=== PATIENT | male | born 1955 | race Two or more races ===

== ENCOUNTER 2021-06-28 14:25 | Inpatient (IN) | payer MEDICARE, OTHER ==
[~2021-06-28] VITALS: Ht 165.1 cm; Wt 71.0 kg
[2021-06-28] MEDS ORDERED: GLUCOSE ORAL GEL 15 GM TUBE PO ONE (14:30)
[2021-06-28] MEDS ORDERED: GLUCOSE ORAL GEL 15 GM TUBE ONE (14:30)
--- NOTE | 2021-06-28 14:30 | NUR ---
Patient brought in by RA Cordero for a low blood sugar, patient blood sugar noted at 11, patient is alert but unable to determine how oriented patient is, patient is a hospice patient, patient is jaundice, right upper arm IV started walker PATEL
[2021-06-28] MEDS ORDERED: DEXTROSE 50% 50 ML DISP.SYRIN ONE (14:31)
[2021-06-28] MEDS ORDERED: GLUCAGON,HUMAN RECOMBINANT 1 MG VIAL ONE (14:31)
[2021-06-28 14:47] LABS: HEMATOCRIT 36.5 % (36.7-47.1); MEAN CORPUSCULAR VOLUME 78.5 fL (73.0-96.2); PLATELET COUNT (AUTO) 231 K/uL (152-348)
[2021-06-28] MEDS ORDERED: IV 10% DEXTROSE 1,000 ML IV STA (14:51)
[2021-06-28] MEDS ORDERED: DEXTROSE 50% 50 ML DISP.SYRIN IV ONE (15:00)
[2021-06-28 15:04] LABS: BILIRUBIN,DIRECT 19.2 mg/dL (0.0-0.2); BILIRUBIN,TOTAL 22.9 mg/dL (0.2-1.0); CREATININE 3.4 mg/dL (0.6-1.3); POTASSIUM 5.1 mmol/L (3.5-5.1); TOTAL PROTEIN, SERUM 5.3 g/dL (6.4-8.2)
[2021-06-28 15:23] LABS: BAND % (MANUAL) 3 % (0-10); EOSINOPHILS % (MANUAL) 1 % (0-8); LYMPHOCYTES % (MANUAL) 15 % (20-40); MONOCYTES % (MANUAL) 9 % (2-10); NEUTROPHILS % (MANUAL) 72 % (42-75)
[2021-06-28] MEDS ORDERED: IV NORMAL SALINE 1000 ML BAG IV ONE ×2 (15:30→15:45)
[2021-06-28] MEDS ORDERED: CEFTRIAXONE 1 G in IV DEXTROSE 5% 50 ML IV ONE (15:30)
[2021-06-28] MEDS ORDERED: CEFTRIAXONE /D5W 50ML IVPB **ER PYXIS IV ONE (15:40)
[2021-06-28] MEDS ORDERED: VANCOMYCIN 1G/D5W 200 ML PIGGYBACK IV ONE (15:45)
[2021-06-28] MEDS ORDERED: VANCOMYCIN IV 200 ML ONE (15:52)
[2021-06-28] MEDS ORDERED: LORAZEPAM 2 MG/1 ML VIAL IV PRN (17:30)
[2021-06-28] MEDS ORDERED: ONDANSETRON 4 MG/2 ML VIAL IV PRN (17:30)
[2021-06-28] MEDS ORDERED: IV D5 1/2 NS 1000 ML 1,000 ML IV PRN (17:30)
[2021-06-28] MEDS ORDERED: MAGNESIUM HYDROXIDE 30 ML LIQUID UDC PO PRN (17:30)
[2021-06-28] MEDS ORDERED: Z GUARD REMEDY PASTE 57 GM TUBE TOP PRN (17:30)
[2021-06-28] MEDS ORDERED: FURO20TA4 PO (18:18)
[2021-06-28] MEDS ORDERED: DOCU100C36 PO (18:18)
[2021-06-28] MEDS ORDERED: METF-442 PO (18:18)
[2021-06-28] MEDS ORDERED: BUSP10TA3 PO (18:18)
[2021-06-28] MEDS ORDERED: LACT10SO3 PO (18:18)
[2021-06-28] MEDS ORDERED: SENN-18 PO (18:18)
[2021-06-28] MEDS ORDERED: OLAN5TAB70 PO (18:18)
[2021-06-28] MEDS ORDERED: OMEP40CA21 PO (18:18)
--- NOTE | 2021-06-28 19:43 | NUR ---
Report given to Terrie KOENIG Medg.
[2021-06-28] MEDS ORDERED: MORPHINE SULFATE 2 MG/1 ML DISP.SYRIN IV ONE (21:00)
--- NOTE | 2021-06-28 21:00 | NUR ---
RECEIVED PT FROM ER. UNDER THE CARE OF JJ FRANCOIS. DX: SIRS WITH ACUTE ORGAN DYSFUNCTION. BELONGING LIST DONE. PT IN 4L NASAL CANNULA. SISTER AT BEDSIDE.ADMISSION PROCESS AND CARE PLAN INITIATED. PENITENTIARY ASSESSMENT DONE. OBSERVED PT HAD PLEURX DRAIN ON RIGHT LOWER QUADRANT ABDOMEN. PT ABDOMEN DISTENDED. SAFETY AND COMFORT PROVIDED. WILL CONTINUE TO MONITOR.
--- NOTE | 2021-06-28 21:01 | NUR ---
PT DNR/DNI PER PT SISTER AND DOCTOR.
[2021-06-28 21:07] VITALS: BP 80/37
[2021-06-28] MEDS: MORPHINE SULFATE PF IV DRIP 100 MG in IV DEXTROSE 5% 96 ML IV PRN ×2 (22:17→22:24)
--- NOTE | 2021-06-28 22:24 | NUR ---
PT STARTED ON MORPHINE DRIP AT 2MNG/HR. PT ON DNR/DNI. PT SHOWS NO SIGNS OF ACUTE DISTRESS. WILL CONTINUE TO MONITOR.
--- NOTE | 2021-06-28 22:30 | NUR ---
SISTER CAME BACK TO VISIT HIS BROTHER AND GIVE THE COPY OF ADVANCE DIRECTIVE AND DPOA PAPERS.
--- NOTE | 2021-06-28 23:00 | NUR ---
SISTER OF THE PT LEFT THE ROOM OF THE PT. PT SLEEPING.
--- NOTE | 2021-06-29 01:00 | NUR ---
PT NO SIGNS OF DYSPNEA AND TOLERATING 4L OXYGEN NASAL CANNULA .
--- NOTE | 2021-06-29 03:00 | NUR ---
PT RESPIRATION IS SLOWLY DECLINING. PT STILL APPEARS COMFORTABLE. SAFETY AND COMFORT PROVIDED. WILL CONTINUE TO MONITOR.
--- NOTE | 2021-06-29 03:58 | NUR ---
PT BECOME PALE,COLD AND CLAMMY.PT APNEIC FOR 5 MINUTES. PUPILS FIXED AND DILATED. NO AUDIBLE HEART TONES,BREATH SOUND FOR 1 MINUTE. NO PALPABLE PULSES FOR 1 MINUTE. NO CORNEAL REFLEXES. PT PRONOUNCED AT 0403H. DR JJ FRANCOIS, NURSING SPRING FORMER MACHINE, [facility] NOTIFIED. TRYING TO CONTACT JUWAN COHEN SISTER OF PT TO NOTIFY HER ABOUT HER BROTHER. CALLED TWICE ALREADYU. WILL TRY TO CALL AGAIN HER SISTER. POSTMORTEM CARE RENDERED AND APPROPRIATE PAPERWORKS COMPLETED.
--- NOTE | 2021-06-29 15:21 | NUR ---
SW Contact feed elevator worker went to complete consult but learned that patient .
== END 2021-06-29 05:00 | DRG 871 ==
LOC: ER 14:44 → MEDSURG3 18:11
PROVIDERS: ADMIT Hospitalist; ATTEND Hospitalist
DX: A41.9 Sepsis, unspecified organism (principal); N17.0 Acute kidney failure with tubular necrosis; R53.2 Functional quadriplegia; E43 Unspecified severe protein-calorie malnutrition; G93.41 Metabolic encephalopathy; C22.9 Malignant neoplasm of liver, not specified as primary or secondary; D68.59 Other primary thrombophilia; R18.8 Other ascites; R64 Cachexia; Z68.1 Body mass index [BMI] 19.9 or less, adult; N39.0 Urinary tract infection, site not specified; Z51.5 Encounter for palliative care; Z66 Do not resuscitate; R65.20 Severe sepsis without septic shock; E11.649 Type 2 diabetes mellitus with hypoglycemia without coma; E86.0 Dehydration; F41.9 Anxiety disorder, unspecified; I10 Essential (primary) hypertension; K74.60 Unspecified cirrhosis of liver; K72.90 Hepatic failure, unspecified without coma; R13.10 Dysphagia, unspecified; R62.7 Adult failure to thrive; Z74.01 Bed confinement status; Z79.4 Long term (current) use of insulin; Z83.3 Family history of diabetes mellitus; Z87.891 Personal history of nicotine dependence
CPT/HCPCS: 36415; 70030-TC; 71045; 83605; 85025; 85730; 87040; 93005; A6209; A9150; G0378; J0696; J1610; J2270; J2274; J3370; J3490; J7060